=== PATIENT | male | born 1985 | race Caucasian/White ===

== ENCOUNTER 2017-04-21 09:22 | Day surgery (SDC) | payer BC ==
[~2017-04-21] VITALS: Ht 170.2 cm; Wt 102.9 kg
[2017-04-21] VITALS (14 sets, daily range): BP systolic 97–131; BP diastolic 47–76; PULSE 63–94; RESP 12–21; Ht 170.2 cm; Wt 102.9 kg
[2017-04-21] MEDS ORDERED: PROPOFOL 20 ML ONE (11:19)
[2017-04-21] MEDS ORDERED: CEFAZOLIN 1 GM INJ ONE (11:19)
[2017-04-21] MEDS ORDERED: ROCURONIUM 50 MG INJ ONE (11:19)
[2017-04-21] MEDS ORDERED: HYDROmorphONE 2 MG/ML SYG ONE (11:20)
[2017-04-21] MEDS ORDERED: MIDAZOLAM 1 MG/ML 2 ML INJ ONE (11:20)
[2017-04-21] MEDS ORDERED: EPHEDrine SULFATE 50 MG/5 ML SYG IV PRN (11:30)
[2017-04-21] MEDS ORDERED: METOCLOPRAMIDE 10 MG INJ IV PRN (11:30)
[2017-04-21] MEDS ORDERED: OXYCODONE/ACETAMINOPHEN (5/325) TAB PO PRN (11:30)
[2017-04-21] MEDS ORDERED: FENTAnyl 50 MCG/ML VIAL IV PRN ×3 (11:30)
[2017-04-21] MEDS ORDERED: ONDANSETRON 4 MG INJ IV PRN (11:30)
[2017-04-21] MEDS ORDERED: DIPHENHYDRAMINE 50 MG INJ IV PRN (11:30)
[2017-04-21] MEDS ORDERED: HYDROmorphONE (0.2 MG/ML) 10ML SYG IV PRN ×3 (11:30)
[2017-04-21] MEDS ORDERED: MEPERIDINE 25 MG INJ IV PRN (11:30)
[2017-04-21] MEDS ORDERED: COCAINE 4% 4 ML TOP ONE (12:27)
[2017-04-21] MEDS ORDERED: NEOMYC/POLYMYX/BACIT 30 GM OINT ONE (12:27)
[2017-04-21] MEDS ORDERED: LIDOCAINE 2%/EPI (MDV) 20ML INJ ONE (12:28)
[2017-04-21] MEDS ORDERED: KETOROLAC 30 MG INJ ONE (12:46)
[2017-04-21] MEDS ORDERED: METOCLOPRAMIDE 10 MG INJ ONE (12:46)
[2017-04-21] MEDS ORDERED: ONDANSETRON 4 MG INJ ONE (12:46)
[2017-04-21] MEDS ORDERED: DEXAMETHASONE 4 MG/ML 1 ML INJ ONE (12:46)
[2017-04-21] MEDS ORDERED: ACETAMINOPHEN 1000MG/100ML IV 100 ML ONE (12:50)
[2017-04-21] MEDS ORDERED: SUGAMMADEX SODIUM 200 MG/2 ML VIAL IV ONE (12:50)
--- NOTE | 2017-04-21 13:26 | SIPON ---
Date/Time of Note Date/Time of Note DATE: 04/21/17 TIME: 13:24 Operative Report Preoperative Diagnosis septal turb hto Postoperative Diagnosis same Operation/Procedure Performed septo turb red Surgeon see signature line librarian assistant none Anesthesia: general Estimated blood loss: minimal Transfusion Required none Specimen to path Grafts/Implants none Complications none MERYL YARBROUGH MD Apr 21, 2017 13:26
--- NOTE | 2017-04-21 13:26 | SIPON ---
Date/Time of Note Date/Time of Note DATE: 04/21/17 TIME: 13:24 Operative Report Preoperative Diagnosis septal turb hto Postoperative Diagnosis same Operation/Procedure Performed septo turb red Surgeon see signature line assistant brand manager none Anesthesia: general Estimated blood loss: minimal Transfusion Required none Specimen to path Grafts/Implants none Complications none MERYL YARBROUGH MD Apr 21, 2017 13:26
--- NOTE | 2017-04-21 13:26 | SIPON ---
Date/Time of Note Date/Time of Note DATE: 04/21/17 TIME: 13:24 Operative Report Preoperative Diagnosis septal turb hto Postoperative Diagnosis same Operation/Procedure Performed septo turb red Surgeon see signature line assistant production editor none Anesthesia: general Estimated blood loss: minimal Transfusion Required none Specimen to path Grafts/Implants none Complications none MERYL YARBROUGH MD Apr 21, 2017 13:26
[2017-04-21] MEDS ORDERED: NALOXONE (0.4 MG/ML) INJ ONE (13:36)
[2017-04-21] MEDS ORDERED: ALBUTEROL 0.083% (NEB) 2.5 MG/3 ML AMP HHN PRN (14:00)
[2017-04-21] MEDS ORDERED: IPRATROPIUM (NEB) 0.5 MG/2.5 ML AMP HHN PRN (14:00)
--- NOTE | 2017-04-21 19:11 | OPR ---
DATE OF OPERATION: 04/21/2017 PREOPERATIVE DIAGNOSIS: Septal deviation with turbinate hypertrophy. POSTOPERATIVE DIAGNOSIS: Septal deviation with turbinate hypertrophy. PROCEDURE PERFORMED: Septoplasty with turbinate reduction. OPERATION: Patient brought to the operating room under parenteral sedation, general oral endotracheal anesthesia, with the patient in the supine position, sterile sheets and drapes applied. Nose anesthetized topically with 5 percent cottonoid cocaine and injectable xylocaine 1 percent, epinephrine 1:100,000. The inferior turbinate bones were lightly crushed and out-fractured. A left hemitransfixion incision was made. The subperichondrial and subperiosteal tunnels to expose the cartilage and bone of the septum. The cartilage was obstructive bilaterally. This was detached from the crest of the premaxilla and from the bony cartilaginous junction. Strips of cartilage were removed and the remaining cartilage vertically through and through cut to correct cartilaginous obstruction. A high right septal spur was noted, mobilized with a mallet and osteotome and removed with forceps. The septal compartment was then suctioned, the incision closed with interrupted 4-0 chromic. The nose was packed with half-inch Adaptic bacitracin gauze. Drip pad was applied and the procedure terminated. Patient awakened and extubated in the operating room, returned to recovery in excellent condition. ESTIMATED BLOOD LOSS: Nil. COMPLICATIONS: None. Dictated By: Trent Shepard MD /[email or web address]/ra /Document#: [id number]
== END 2017-04-21 15:35 | disposition home or self-care (01) ==
LOC: SDS 09:22
PROVIDERS: ATTEND Otolaryngology Otolaryngology/Facial Plastic Surgery
DX: J34.2 Deviated nasal septum (principal); J34.3 Hypertrophy of nasal turbinates
CPT/HCPCS: 30140; 30520; 88300; 94664; J0131; J0690; J1100; J1170; J1885; J2250; J2310; J2405; J2765; Z7512; Z7610